=== PATIENT | male | born 1970 | race Two or more races ===

== ENCOUNTER 2020-11-01 17:25 | Inpatient (IN) | payer OTHER ==
[~2020-11-01] VITALS: Ht 157.5 cm; Wt 61.7 kg
[2020-11-08] MEDS ORDERED: CLONAZEPAM1 MG (09:59)
[2020-11-08] MEDS ORDERED: FENOFIBRATE145 MG (09:59)
[2020-11-08] MEDS ORDERED: DIVALPROEX SOD250 M1 (09:59)
[2020-11-08] MEDS ORDERED: CITALOPRAM HBR10 MG (09:59)
[2020-11-08] MEDS ORDERED: RESTORIL15 MG (09:59)
[2020-11-08] MEDS ORDERED: TOPIRAMATE25 MG (10:00)
[2020-11-08] MEDS ORDERED: TRAZODONE HCL50 MG (10:01)
[2020-11-08] MEDS ORDERED: OMEPRAZOLE20 MG (10:05)
[2020-11-08] MEDS ORDERED: TRAM1TAB98 (10:05)
[2020-11-12] MEDS ORDERED: PERCOCET 5-3251 EACH PO (13:49)
[2020-11-12] MEDS ORDERED: PRILOSEC OTC20 MG PO (13:49)
== END 2020-11-12 14:11 | disposition home or self-care (01) | DRG 330 ==
LOC: SURH 11-08 07:00 → O/R 11-08 07:03 → SURH 11-08 14:33
PROVIDERS: ADMIT Surgery; ATTEND Surgery
PROC: 0DTN0ZZ Resection of Sigmoid Colon, Open Approach (ICD-10-PCS; 2020-11-08)
PROC: 07BC0ZX Excision of Pelvis Lymphatic, Open Approach, Diagnostic (ICD-10-PCS; 2020-11-08)
PROC: 3E0F7SF Introduction of Other Gas into Respiratory Tract, Via Natural or Artificial Opening (ICD-10-PCS; 2020-11-08)
PROC: 0DTP0ZZ Resection of Rectum, Open Approach (ICD-10-PCS; principal; 2020-11-08 07:00)
DX: C18.7 Malignant neoplasm of sigmoid colon (principal); K92.1 Melena; K63.89 Other specified diseases of intestine; R59.0 Localized enlarged lymph nodes; E87.6 Hypokalemia; Z20.822 Contact with and (suspected) exposure to COVID-19

== ENCOUNTER 2020-11-06 05:30 | Day surgery (SDC) | payer OTHER | END 2020-11-06 10:20 | disposition home or self-care (01) | LOC: AMB-ENDOS 05:30 | PROVIDERS: ATTEND Surgery | DX: C20 Malignant neoplasm of rectum (principal); K64.8 Other hemorrhoids; Z20.822 Contact with and (suspected) exposure to COVID-19 ==